=== PATIENT | male | born 1945 | race Caucasian/White ===

== ENCOUNTER 2019-03-20 18:14 | Emergency (ER) | payer OTHER ==
--- NOTE | 2019-03-20 18:22 | PDOC ---
NIH Stroke Scale - Last Known Well Date/Time & Onset Date Last Known Well: 03/20/19 Time Last Known Well: 16:00 - Initial Evaluation Level of consciousness: Alert Ask patient the month and their age: Answers both correctly Ask patient to open & close eyes; make fist and let go: Obeys both correctly Best gaze (horizontal eye movement): Normal Visual field testing: No visual field loss Facial paresis (Show teeth/raise eyebrows/close eyes tight): Normal symmetrical movement Motor Function: Left Arm: Normal Motor Function: Right Arm: Normal (extends arm 90 (or 45) degrees for 10 seconds without drift Motor Function: Left Leg: Normal (extends leg 30 degrees for 5 seconds without drift) Motor Function: Right Leg: Normal (extends leg 30 degrees for 5 seconds without drift) Limb Ataxia: No ataxia Sensory(Use pinprick test arms,legs,trunk,face/side to side): Normal Best language (Describe picture, name items, read sentences): No Aphasia Dysarthria (read several words): Normal articulation Extinction and Inattention: No abnormality - Total Score NIH Stroke Scale Score: 0
[2019-03-20 18:28] VITALS: TEMP 97.8; BMI 26.0
--- NOTE | 2019-03-20 19:25 | PDOC ---
History of Present Illness - General Chief Complaint: Weakness Stated Complaint: RIGHT SIDE WEAKNESS - History of Present Illness Initial Comments: Jose Juan Marcus is a 73yo man with a PMH of HTN, HLD, CA s/p 2x stents who presents reporting right-sided arm and leg numbness that lasted about an hour this evening. He says that he has had similar symptoms several times over the past month or two, but he was "able to shake it off" previuosly. He was never evaluated. He states that today, the numbness started around 4pm, and he was unable to use his right upper or lower extremities afterwards. He says that he could not feel his hand at all. He tried to get up and walk, but he fell to the ground because his right leg was unable to support him. Per his and daughter at bedside, he has had several episodes in the past when he had to sit on the ground because he was unable to walk due to his right leg feeling numb. Mr Marcus is unable to say whether his leg also feels weak when the numbness occurs. The sensation has now completely resolved, and he says that he feels well. Past History - Past Medical History Allergies/Adverse Reactions: Allergies Allergy/AdvReac Type Severity Reaction Status Date / Time No Known Allergies Allergy Verified 03/20/19 18:24 Cardiac Disorders: Yes (STENTS X 2) COPD: No Diabetes: Yes HTN: Yes Psychiatric Problems: Yes (PTSD) Other medical history: [employer] - Surgical History Cardiac Surgery: Yes (STENTS X 2) - Psycho Social/Smoking Cessation Hx Smoking History: Current every day smoker Number of Cigarettes Smoked Daily: 5 Information on smoking cessation initiated: Yes Hx Alcohol Use: No Drug/Substance Use Hx: No Review of Systems - Review of Systems Comments:: General: No fevers, no chills, no weight or appetite change, no malaise HEENT: No changes in vision, no changes in hearing, no congestion, no sore throat CV: No chest pain, no palpitations, no LE edema Pulm: No SOB, no cough, no wheezing GI: No nausea or vomiting, no change in bowel habits, no melena : No frequency, no urgency, no dysuria Musc: No back pain, no joint swelling, no recent injury Skin: No rash, no lesions, no erythema Endo: No excessive thirst, no heat/cold intolerance Heme: No unusual bruising or bleeding, no swollen glands Neuro: No syncope, +numbness, no focal weakness Vasc: No claudication Psych: No recent change in mood, no SI or HI *Physical Exam - Vital Signs Last Vital Signs Temp Pulse Resp BP Pulse Ox 97.8 F 64 20 152/74 98 03/20/19 18:24 03/20/19 18:24 03/20/19 18:24 03/20/19 18:24 03/20/19 18:28 - Physical Exam General: Comfortable, no acute distress HEENT: PERRL, EOMI, MMM, voice normal, normal neck ROM Cards: RRR, no murmur appreciated Pulm: Comfortable on room air, clear to auscultation bilaterally Abd: Soft, nontender, nondistended Ext: Atraumatic. No LE edema. ROM intact. Strength 5/5 and equal bilaterally Vasc: Extremities WWP. Skin: Normal color, no rashes or lesions Neuro: A&Ox3, CN grossly intact, normal speech, motor/sensory grossly intact and symmetric Psych: Mood appropriate to situation ED Treatment Course - ADDITIONAL ORDERS Additional order review: Laboratory Results 03/20/19 18:48 POC Glucometer 168 03/20/19 18:48 POC Glucometer 168 Medical Decision Making - Medical Decision Making 03/20/19 19:22 Jose Juan Marcus is a 73yo man with a PMH of HTN, HLD, CA s/p 2x stents who presents reporting right-sided arm and leg numbness that lasted about an hour this evening, now resolved, that prevented him from bearing weight. He states that he fell to the ground but denies injury. He reports similar episodes over the past month but has not been evaluated. - One-sided numbness present earlier today for 1-2 hours, concerning for possible TIA - Discussed TIA workup and likely hospital admission w/ the patient and his family - Mr Marcus is currently declining any medical evaluation. He states that he feels well, and he "only lives 5 minutes away." Discussed that his symptoms may be due to a TIA, and he could be at significant risk for stroke. He states that he understands but still wishes to leave. Pt appears somewhat upset, will give him time to discuss with family prior to giving AMA paperwork 03/20/19 19:58 - Pt initially agreed to workup, TIA/CVA workup ordered, but pt now [facility] Again advised patient that he could be at high risk for stroke, permanent neurological deficits, or . He states that he understands the risks but prefers to leave [facility] and to go the [facility] instead. - Family ( and adult daughter) also at bedside, present for the entire conversation. Both also stated that they understand the risks of leaving without additional workup. Discussed with Dr Wally Saleh PGY2 Discharge - Discharge Information Problems reviewed: Yes Clinical Impression/Diagnosis: Left against medical advice Disposition: AGAINST MEDICAL ADVICE - Follow up/Referral - Patient Discharge Instructions - Post Discharge Activity
--- NOTE | 2019-03-20 19:30 | PDOC ---
Attending Attestation - Resident Resident Name: Lana Saleh - ED Attending Attestation I have performed the following: The case was reviewed & discussed with the resident, I agree w/resident's findings & plan - HPI HPI: 03/20/19 23:02 see resident hpi - Physicial Exam PE: 03/20/19 23:02 see resident exam - Medical Decision Making 03/20/19 23:Patient seen briefly at the bedside, he is awake and alert, patient and family will be signing out AGAINST MEDICAL ADVICE due to insurance concerns Patient and family counseled at length regarding risks and have verbalized understanding.
[2019-03-20 20:03] VITALS: BP 160/63; PULSE 65
--- NOTE | 2019-03-21 15:11 | EKG ---
Test Reason : Blood Pressure : / mmHG Vent. Rate : 063 BPM Atrial Rate : 063 BPM P-R Int : 182 ms QRS Dur : 120 ms QT Int : 508 ms P-R-T Axes : 063 059 042 degrees QTc Int : 519 ms POOR DATA QUALITY, INTERPRETATION MAY BE ADVERSELY AFFECTED NORMAL SINUS RHYTHM LEFT VENTRICULAR HYPERTROPHY WITH QRS WIDENING ABNORMAL ECG WHEN COMPARED WITH ECG OF 02-OCT-2009 15:36, PREVIOUS ECG HAS UNDETERMINED RHYTHM, NEEDS REVIEW CRITERIA FOR INFERIOR INFARCT ARE NO LONGER PRESENT T WAVE INVERSION NO LONGER EVIDENT IN ANTERIOR LEADS QT HAS LENGTHENED Confirmed by KWAN CHAVEZ MD ([id number]) on 03/21/2019 3:11:36 PM Referred By: Confirmed By:KWAN CHAVEZ MD
== END 2019-03-20 20:04 | disposition left against medical advice (07) ==
LOC: JER 18:14
DX: R29.898 Other symptoms and signs involving the musculoskeletal system (principal); I25.10 Atherosclerotic heart disease of native coronary artery without angina pectoris; I10 Essential (primary) hypertension; I25.2 Old myocardial infarction; Z95.5 Presence of coronary angioplasty implant and graft; E11.9 Type 2 diabetes mellitus without complications; F43.10 Post-traumatic stress disorder, unspecified; F11.20 Opioid dependence, uncomplicated; F17.210 Nicotine dependence, cigarettes, uncomplicated
CPT/HCPCS: 82962; 93005; 93010; 99284-25